=== PATIENT | female | born 1945 | race Two or more races ===

== ENCOUNTER 2017-01-27 17:08 | Inpatient (IN) | payer MEDICARE, MEDICAID ==
[~2017-01-27] VITALS: Ht 165.1 cm; Wt 73.9 kg
[~2017-01-27 17:08] MED LIST: ASPI81TA31 PO; CARB1TAB21 PO; CARV12.52 PO; CLON0.5T4 PO; Docusate Sodium PO; MAGN400O6 PO; METH10TA7 PO; OXCA150T5 PO; QUET25TA PO; SIMV40TA5 PO; TRAZ-144 PO
[2017-01-27] MEDS ORDERED: QUET25TA PO ×2 (18:00)
[2017-01-27] MEDS ORDERED: HALOPERIDOL LACTATE 5 MG/1 ML VIAL IM ONE (19:30)
[2017-01-27] MEDS ORDERED: LORAZEPAM 2 MG/1 ML VIAL IM ONE (19:30)
[2017-01-27] MEDS ORDERED: diphenhydrAMINE 50 MG/1 ML VIAL IM ONE (19:30)
--- NOTE | 2017-01-27 19:44 | NUR ---
Patient is yelling and screaming, attempting to climb out of bed. Not making any sense at this time. Family at bedside. IM ordered by MARQUIS, orders carried out.
[2017-01-27] MEDS ORDERED: diphenhydrAMINE 50 MG/1 ML VIAL ONE (19:50)
[2017-01-27] MEDS ORDERED: HALOPERIDOL LACTATE 5 MG/1 ML VIAL ONE (19:50)
[2017-01-27] MEDS ORDERED: LORAZEPAM 2 MG/1 ML VIAL ONE (19:51)
[2017-01-27 20:10] LABS: *BILIRUBIN,URIN NEGATIVE (NEGATIVE); *BLOOD, URINE NEGATIVE (NEGATIVE); *CLARITY,URINE CLEAR (CLEAR); *COLOR,URINE YELLOW (YELLOW); *KETONES,URINE NEGATIVE (NEGATIVE); *PROTEIN,URINE NEGATIVE (NEGATIVE); *UROBILINOGEN,URINE 0.2 E.U./dl (NORMAL); LEUKOCYTE ESTERASE ,URINE TRACE (NEGATIVE); NITRITE, URINE NEGATIVE (NEGATIVE); UGLUCOSE NEGATIVE (NEGATIVE)
[2017-01-27 20:16] LABS: RBC,URINE 0-3 /HPF (0-3); SQUAMOUS EPITHELIAL CELL,UR FEW /HPF (NONE SEEN)
[2017-01-27 20:17] LABS: *AMPHETAMINE, URINE NEGATIVE (NEGATIVE); *BARBITURATE, URINE NEGATIVE (NEGATIVE); *CANNABINOID, URINE NEGATIVE (NEGATIVE); *COCCAINE, URINE NEGATIVE (NEGATIVE); *OPIATE, URINE NEGATIVE (NEGATIVE); *PHENCYCLIDINE SCREEN,URINE NEGATIVE (NEGATIVE)
[2017-01-27 20:49] LABS: BASOPHILS % (AUTO) 0.8 % (0.0-2.0); EOSINOPHILS % (AUTO) 0.8 % (0.0-7.0); HEMATOCRIT 34.9 % (37-47); HEMOGLOBIN 11.4 G/DL (12.0-16.0); LYMPHOCYTES # (AUTO) 1.8 K/UL (0.8-4.8); LYMPHOCYTES % (AUTO) 30.7 % (20.5-51.5); MEAN CORPUSCULAR HEMOGLOBIN 28.7 UUG (27.0-31.0); MEAN CORPUSCULAR HGB CONC 33 g/dL (32.0-37.0); MEAN CORPUSCULAR VOLUME 87.5 FL (81.0-99.0); MONOCYTES # (AUTO) 0.5 K/UL (0.1-1.30); MONOCYTES % (AUTO) 9.2 % (0.0-11.0); NEUTROPHILS # (AUTO) 3.6 K/UL (1.8-8.9); NEUTROPHILS % (AUTO) 58.5 % (38.5-71.5); PLATELET COUNT (AUTO) 190 K/UL (150-450); RED BLOOD CELL COUNT(AUTO) 3.99 MIL/UL (4.2-5.4); WHITE BLOOD COUNT (AUTO) 5.9 K/UL (4.0-11.2)
[2017-01-27 20:55] LABS: CARBON DIOXIDE 27 mmol/L (21-32); CHLORIDE 105 mmol/L (98-107); CREATININE 0.7 mg/dL (0.6-1.3); GLUCOSE 108 mg/dL (74-106); POTASSIUM 3.8 mmol/L (3.5-5.1); UREA NITROGEN, BLOOD 18 mg/dL (7-18)
[2017-01-27 20:59] LABS: ETHANOL < 3 MG/DL (0-0)
[2017-01-27 21:00] LABS: ALANINE AMINOTRANSFERASE 122 U/L (14-59); ALKALINE PHOSPHATASE 59 U/L (50-136); ASPARTATE AMINOTRANSFERASE 44 U/L (15-37); BILIRUBIN,DIRECT 0.1 mg/dL (0.0-0.2); BILIRUBIN,TOTAL 0.2 mg/dL (0.2-1.0)
[2017-01-27 21:01] LABS: ACETAMINOPHEN < 2.0 ug/mL (10-30)
[2017-01-27 21:33] LABS: THYROID STIMULATING HORMONE 1.148 mIU/mL (0.358-3.740)
--- NOTE | 2017-01-28 | NUR ---
REPORT CALLED TO CORTNEY MCDONALD
--- NOTE | 2017-01-28 01:01 | NUR ---
Pt. admitted to [facility]HU , under care of Dr. CORREA Belongs List completed
--- NOTE | 2017-01-28 01:02 | NUR ---
TRASNPORTED PATIENT VIA STRETCHER.
[2017-01-28] MEDS ORDERED: MAG HYDROX/AL HYDROX/SIMETH 30 ML LIQUID UDC PO PRN (01:15)
[2017-01-28] MEDS ORDERED: MAGNESIUM HYDROXIDE 30 ML LIQUID UDC PO PRN (01:15)
[2017-01-28 04:09] LABS: *BILIRUBIN,URIN NEGATIVE (NEGATIVE); *BLOOD, URINE Trace-intact (NEGATIVE); *CLARITY,URINE CLEAR (CLEAR); *COLOR,URINE YELLOW (YELLOW); *KETONES,URINE NEGATIVE (NEGATIVE); *PROTEIN,URINE NEGATIVE (NEGATIVE); *UROBILINOGEN,URINE 0.2 E.U./dl (NORMAL); LEUKOCYTE ESTERASE ,URINE TRACE (NEGATIVE); NITRITE, URINE NEGATIVE (NEGATIVE); PH,URINE 6.5 (5.0-8.0); UGLUCOSE NEGATIVE (NEGATIVE)
[2017-01-28 04:18] LABS: BACTERIA,URINE NONE SEEN /HPF (NONE SEEN); MUCUS,URINE FEW /LPF (0-FEW); SQUAMOUS EPITHELIAL CELL,UR FEW /HPF (NONE SEEN)
[2017-01-28] MEDS: QUETIAPINE FUMARATE 25 MG TABLET PO PRN ×4 (04:42→18:48)
[2017-01-28] MEDS ORDERED: QUETIAPINE FUMARATE 25 MG TABLET ONE (04:45)
--- NOTE | 2017-01-28 05:58 | NUR ---
GPS/NSG Patient is a 71 yr old greenlandic speaking female admitted on a 5150 for Grave Disability according to the hold she became unmanageable at home combative towards caregivers, making attempts to elope and patient is unable to ambulate brought in by son. Patient has a history of Bipolar, Depression, Hypertension, hyperlipidemia, Parkinson's, TIA, metabolic encephalopathy, Seizure Disorder under the care of Dr. Rasmussen and Dr. Weems. Patient has an unsteady gait due to Parkinson's and is at high risks for falls, patient requires a 1:1 sitter for safety. Patient presented with multiple bruises located on the lower back, otherwise skin intact. Belongings sent home with son, patient unable to answer admitting interview questions due to altered mental status, patient received a one time IM administered as ordered in ER for increased agitation. Follow up with medication reconciliation endorsed to a.m. shift. Last observed lying in bed asleep.
[2017-01-28 07:30] VITALS: BP 97/70
[2017-01-28] MEDS: OMEGA-3 FATTY ACIDS/FISH OIL CAPSULE PO SCH ×2 (10:31→20:00)
[2017-01-28] MEDS: MULTIVITAMINS,THERAPEUTIC TABLET PO SCH (10:31)
[2017-01-28] MEDS: CARBIDOPA/LEVODOPA 25-100MG TABLET PO SCH ×3 (10:31→17:33)
--- NOTE | 2017-01-28 12:33 | NUR ---
Initial discharge instructions: Pt continues to reside at home [[address] [place] [address]; ] with her son.SW called pt's son, Duy [phone] but no answer at this time.ROXANA will speak with pt,son,and MD regarding appropriate discharge plans.SS will form a safe and proper discharge.
[2017-01-28 15:00] VITALS: BP 104/55
[2017-01-28] MEDS ORDERED: Medication Not On Formulary EA ([Docusate Sodium] (Colace) 200 MG) PO SCH (17:00)
[2017-01-28] MEDS: DOCUSATE SODIUM 100 MG CAPSULE PO SCH (20:01)
[2017-01-28 20:47] VITALS: BP 103/59
[2017-01-28] MEDS ORDERED: QUETIAPINE FUMARATE 25 MG TABLET PO SCH (21:00)
[2017-01-29] MEDS: ACETAMINOPHEN 325 MG TABLET PO PRN ×2 (05:59→20:49)
--- NOTE | 2017-01-29 06:00 | NUR ---
GPS: PATIENT C/O BACK PAIN. TYLENOL 650 MG PO GIVEN FOR PAIN.
--- NOTE | 2017-01-29 06:36 | NUR ---
GPS: REMAIN CALM AND COOPERATIVE,CONTINUE ON 1:1 SITTER @ BEDS SIDE FOR SAFETY. SLEPT 6 HRS THROUGH THE NIGHT.
[2017-01-29 07:30] VITALS: BP 108/57
[2017-01-29] MEDS: CARBIDOPA/LEVODOPA 25-100MG TABLET PO SCH ×3 (08:52→16:10)
[2017-01-29] MEDS: OMEGA-3 FATTY ACIDS/FISH OIL CAPSULE PO SCH ×2 (08:52→20:01)
[2017-01-29] MEDS: DOCUSATE SODIUM 100 MG CAPSULE PO SCH ×2 (08:52→20:02)
[2017-01-29] MEDS: MULTIVITAMINS,THERAPEUTIC TABLET PO SCH (08:52)
[2017-01-29] MEDS ORDERED: QUETIAPINE FUMARATE 25 MG TABLET PO SCH (09:00)
[2017-01-29] MEDS: QUETIAPINE FUMARATE 25 MG TABLET PO PRN ×2 (10:56→14:51)
[2017-01-29] MEDS: QUETIAPINE FUMARATE 25 MG TABLET PO SCH ×2 (13:36→20:03)
[2017-01-29] MEDS: CLONAZEPAM 0.5 MG TABLET PO SCH (15:11)
[2017-01-29 15:50] VITALS: BP 126/71
[2017-01-29] MEDS: ATORVASTATIN 10 MG TABLET PO SCH (20:02)
[2017-01-29 20:43] VITALS: BP 124/62
--- NOTE | 2017-01-29 21:32 | NUR ---
Patient complained of mild headaches. Tylenol 650mg PO PRN was given (see MAR). we will monitor for effectiveness.
--- NOTE | 2017-01-30 06:43 | NUR ---
Patient slept for approx. 6.45 hrs through the night. medication compliant at this time. Continue on 1:1 supervision for fall precaution.
[2017-01-30] MEDS: ACETAMINOPHEN 325 MG TABLET PO PRN ×2 (07:19→12:44)
[2017-01-30] MEDS: QUETIAPINE FUMARATE 25 MG TABLET PO PRN ×2 (07:19→11:50)
[2017-01-30 07:30] VITALS: BP 112/52
[2017-01-30] MEDS: OMEGA-3 FATTY ACIDS/FISH OIL CAPSULE PO SCH ×2 (08:58→20:32)
[2017-01-30] MEDS: CARBIDOPA/LEVODOPA 25-100MG TABLET PO SCH ×3 (08:59→16:42)
[2017-01-30] MEDS: DOCUSATE SODIUM 100 MG CAPSULE PO SCH ×2 (08:59→20:32)
[2017-01-30] MEDS: QUETIAPINE FUMARATE 25 MG TABLET PO SCH ×3 (08:59→20:33)
[2017-01-30] MEDS: MULTIVITAMINS,THERAPEUTIC TABLET PO SCH (08:59)
[2017-01-30] MEDS: CLONAZEPAM 0.5 MG TABLET PO SCH ×2 (08:59→14:24)
--- NOTE | 2017-01-30 15:38 | NUR ---
GPS: Nursing Notes: Patient's Son: Dyu: Patient's son Duy calling nursing station shouting on the phone stating that the PLANT BREEDER is throwing the phone at her, shouting at staff that "I believes my mom..", reassured him that her mom is save and nobody is throwing the phone at her, but continue to insist that the sitter is hurting her mom, getting louder every time staff tried to explain to him that her mother is safe here, but won't listen, stating threats against the sitter, stating that he is coming.. staff said.."Good.. we can talk face to face...". See you later.
[2017-01-30 16:00] VITALS: BP 110/58
[2017-01-30 20:00] VITALS: BP 84/50
--- NOTE | 2017-01-30 20:00 | NUR ---
GPS/GOODWILL REPRESENTATIVE: RECEIVED PATIENT LAYING IN BED IN HER ROOM. PLESANT UPON APPROACH.NO AGITATION NOTED.ON 1:1 SITTER @ BEDSIDE FOR SAFETY ALL THE TIME.
[2017-01-30 20:30] VITALS: BP 105/50
[2017-01-30] MEDS: ATORVASTATIN 10 MG TABLET PO SCH (20:32)
--- NOTE | 2017-01-31 06:06 | NUR ---
GPS/FURNACE UNLOADER: REMAIN CALM AND COOPERATIVE WITH MEDS AND CARE. SHOWERED THIS MORNING. KEPT CLEAN AND DRY. SLEPT 6:15 HRS THROUGH THE NIGHT.CONTINUE ON 1:1 SITTER @ BED SIDE FOR SAFETY.
[2017-01-31 07:42] VITALS: BP 111/58
[2017-01-31 08:05] LABS: ALANINE AMINOTRANSFERASE 85 U/L (14-59); ALKALINE PHOSPHATASE 52 U/L (50-136); ASPARTATE AMINOTRANSFERASE 32 U/L (15-37); BASOPHILS % (AUTO) 0.9 % (0.0-2.0); BILIRUBIN,TOTAL 0.3 mg/dL (0.2-1.0); CARBON DIOXIDE 27 mmol/L (21-32); CHLORIDE 106 mmol/L (98-107); CREATININE 0.8 mg/dL (0.6-1.3); EOSINOPHILS # (AUTO) 0.1 K/uL (0.0-0.7); EOSINOPHILS % (AUTO) 1.7 % (0.0-7.0); GLUCOSE 102 mg/dL (74-106); HEMATOCRIT 35.3 % (37-47); HEMOGLOBIN 11.7 G/DL (12.0-16.0); LYMPHOCYTES # (AUTO) 1.9 K/UL (0.8-4.8); LYMPHOCYTES % (AUTO) 34.8 % (20.5-51.5); MEAN CORPUSCULAR HGB CONC 33 g/dL (32.0-37.0); MEAN CORPUSCULAR VOLUME 87.5 FL (81.0-99.0); MONOCYTES # (AUTO) 0.5 K/UL (0.1-1.30); NEUTROPHILS % (AUTO) 53.6 % (38.5-71.5); PHOSPHOROUS 3.8 mg/dL (2.5-4.9); PLATELET COUNT (AUTO) 185 K/UL (150-450); POTASSIUM 4.2 mmol/L (3.5-5.1); RED BLOOD CELL COUNT(AUTO) 4.03 MIL/UL (4.2-5.4); TOTAL PROTEIN, SERUM 7.2 g/dL (6.4-8.2); UREA NITROGEN, BLOOD 29 mg/dL (7-18); WHITE BLOOD COUNT (AUTO) 5.5 K/UL (4.0-11.2)
[2017-01-31] MEDS: CLONAZEPAM 0.5 MG TABLET PO SCH ×4 (09:09→18:57)
[2017-01-31] MEDS: OMEGA-3 FATTY ACIDS/FISH OIL CAPSULE PO SCH ×2 (09:10→21:22)
[2017-01-31] MEDS: CARBIDOPA/LEVODOPA 25-100MG TABLET PO SCH ×4 (09:10→18:57)
[2017-01-31] MEDS: DOCUSATE SODIUM 100 MG CAPSULE PO SCH ×2 (09:10→21:23)
[2017-01-31] MEDS: MULTIVITAMINS,THERAPEUTIC TABLET PO SCH (09:10)
[2017-01-31] MEDS: QUETIAPINE FUMARATE 25 MG TABLET PO SCH ×3 (09:10→21:23)
[2017-01-31] MEDS: QUETIAPINE FUMARATE 25 MG TABLET PO PRN (10:14)
[2017-01-31 16:26] VITALS: BP 111/53
[2017-01-31 21:22] VITALS: BP 101/58
[2017-01-31] MEDS: ATORVASTATIN 10 MG TABLET PO SCH (21:22)
--- NOTE | 2017-01-31 22:00 | NUR ---
received to care, lying in bed, appearing restless at times, 1;1 sitter at side,at all times, for safety. compliant with medications and staff direction. her son came at around 2100, with permission of the nursing leather products supervisor, to visit, supervised by hospital security, for 15 minutes. he left with out any problems. as of 2200, she appears to be intermittently awake. bedtime snack and fluids given. assisted with toileting. will continue to monitor closely.
[2017-01-31] MEDS: ZOLPIDEM 5 MG TABLET PO PRN (23:12)
--- NOTE | 2017-01-31 23:12 | NUR ---
remains restless. PRN bari was given, at this time. will continue to monitor closely.
--- NOTE | 2017-02-01 06:32 | NUR ---
slept well last night, 8 hours, total. is now awake, lying in bed. sitter remains at bedside. no distress noted. will continue to monitor closely.
[2017-02-01 07:30] VITALS: BP 123/59
[2017-02-01] MEDS: CARBIDOPA/LEVODOPA 25-100MG TABLET PO SCH ×3 (08:03→16:50)
[2017-02-01] MEDS: OXCARBAZEPINE 150 MG TABLET PO SCH ×3 (08:03→16:50)
[2017-02-01] MEDS: QUETIAPINE FUMARATE 25 MG TABLET PO SCH ×3 (08:03→20:09)
[2017-02-01] MEDS: OMEGA-3 FATTY ACIDS/FISH OIL CAPSULE PO SCH ×2 (08:03→20:10)
[2017-02-01] MEDS: DOCUSATE SODIUM 100 MG CAPSULE PO SCH ×2 (08:04→20:10)
[2017-02-01] MEDS: CLONAZEPAM 0.5 MG TABLET PO SCH ×2 (08:04→15:07)
[2017-02-01] MEDS: MULTIVITAMINS,THERAPEUTIC TABLET PO SCH (08:04)
[2017-02-01] MEDS: QUETIAPINE FUMARATE 25 MG TABLET PO PRN (11:24)
[2017-02-01 15:20] VITALS: BP 92/50
[2017-02-01 19:55] VITALS: BP 119/55
[2017-02-01] MEDS: ATORVASTATIN 10 MG TABLET PO SCH (20:11)
--- NOTE | 2017-02-01 20:57 | NUR ---
anxious, restless, disruptive, requires frequent redirection, agitated, screams and shouts, medicated as ordered, will continue to monitor.
[2017-02-02] MEDS: QUETIAPINE FUMARATE 25 MG TABLET PO PRN ×2 (02:27→13:45)
[2017-02-02 07:30] VITALS: BP 133/58
[2017-02-02] MEDS: MULTIVITAMINS,THERAPEUTIC TABLET PO SCH (08:34)
[2017-02-02] MEDS: QUETIAPINE FUMARATE 25 MG TABLET PO SCH ×3 (08:35→20:08)
[2017-02-02] MEDS: OMEGA-3 FATTY ACIDS/FISH OIL CAPSULE PO SCH ×2 (08:35→20:37)
[2017-02-02] MEDS: DOCUSATE SODIUM 100 MG CAPSULE PO SCH ×2 (08:35→20:07)
[2017-02-02] MEDS: CARBIDOPA/LEVODOPA 25-100MG TABLET PO SCH ×3 (08:35→17:55)
[2017-02-02] MEDS: OXCARBAZEPINE 150 MG TABLET PO SCH ×3 (08:35→17:55)
[2017-02-02] MEDS: CLONAZEPAM 0.5 MG TABLET PO SCH ×2 (08:36→16:15)
[2017-02-02 16:00] VITALS: BP 112/95
--- NOTE | 2017-02-02 18:38 | NUR ---
patient less anxious today short periods of crying and agitation 1;1 at bedside for safety . continue to monitor for safety
[2017-02-02 19:56] VITALS: BP 118/63
[2017-02-02] MEDS: ATORVASTATIN 10 MG TABLET PO SCH (21:28)
[2017-02-02] MEDS: ACETAMINOPHEN 325 MG TABLET PO PRN (21:28)
[2017-02-02] MEDS: ZOLPIDEM 5 MG TABLET PO PRN (21:29)
[2017-02-02] MEDS: ENOXAPARIN SODIUM 40 MG/0.4 ML DISP.SYRIN SQ SCH (21:30)
--- NOTE | 2017-02-02 21:44 | NUR ---
PT IS VERY ANXIOUS AND RESTLESS, ATTEMPTING TO CLIMB OUT BED, MAKING WEIRD NOISE, SNACKS OFFERED, PAIN MED OFFERED, ATTEMPTED TO AMBULATE PT ON THE HALLWAY WITH STAFF FOLLOWING BEHIND WITH WC BEHIND,UNABLE TO MAKE HER NEED KNOWN,WILL CONTINUE TO MONITOR CLOSELY.
[2017-02-03] MEDS: QUETIAPINE FUMARATE 25 MG TABLET PO PRN ×3 (01:40→18:52)
--- NOTE | 2017-02-03 01:40 | NUR ---
PT STILL AWAKE AND RESTLESS, SCREAMING AND SHOUTING, MEDICATED ORDERED, WILL CONTINUE TO MONITOR.
--- NOTE | 2017-02-03 07:05 | NUR ---
pt slept zero sleep
[2017-02-03 07:30] VITALS: BP 115/60
[2017-02-03 08:00] LABS: BASOPHILS % (AUTO) 0.8 % (0.0-2.0); EOSINOPHILS # (AUTO) 0.1 K/uL (0.0-0.7); EOSINOPHILS % (AUTO) 1.1 % (0.0-7.0); HEMATOCRIT 35.9 % (37-47); HEMOGLOBIN 12.1 G/DL (12.0-16.0); LYMPHOCYTES # (AUTO) 1.9 K/UL (0.8-4.8); LYMPHOCYTES % (AUTO) 36.4 % (20.5-51.5); MEAN CORPUSCULAR HEMOGLOBIN 29.6 UUG (27.0-31.0); MEAN CORPUSCULAR HGB CONC 34 g/dL (32.0-37.0); MEAN CORPUSCULAR VOLUME 87.9 FL (81.0-99.0); MONOCYTES # (AUTO) 0.4 K/UL (0.1-1.30); MONOCYTES % (AUTO) 8.5 % (0.0-11.0); NEUTROPHILS # (AUTO) 2.7 K/UL (1.8-8.9); NEUTROPHILS % (AUTO) 53.2 % (38.5-71.5); PLATELET COUNT (AUTO) 182 K/UL (150-450); RED BLOOD CELL COUNT(AUTO) 4.08 MIL/UL (4.2-5.4); WHITE BLOOD COUNT (AUTO) 5.1 K/UL (4.0-11.2)
[2017-02-03] MEDS: MULTIVITAMINS,THERAPEUTIC TABLET PO SCH (08:25)
[2017-02-03] MEDS: OMEGA-3 FATTY ACIDS/FISH OIL CAPSULE PO SCH ×2 (08:25→20:00)
[2017-02-03] MEDS: CARBIDOPA/LEVODOPA 25-100MG TABLET PO SCH ×3 (08:25→17:17)
[2017-02-03] MEDS: CLONAZEPAM 0.5 MG TABLET PO SCH ×2 (08:25→15:56)
[2017-02-03] MEDS: QUETIAPINE FUMARATE 25 MG TABLET PO SCH ×3 (08:25→20:09)
[2017-02-03] MEDS: OXCARBAZEPINE 150 MG TABLET PO SCH ×3 (08:25→17:17)
[2017-02-03] MEDS: DOCUSATE SODIUM 100 MG CAPSULE PO SCH ×2 (08:26→20:00)
[2017-02-03 08:41] LABS: CREATININE 0.8 mg/dL (0.6-1.3); POTASSIUM 3.5 mmol/L (3.5-5.1)
[2017-02-03 16:00] VITALS: BP 102/63
--- NOTE | 2017-02-03 18:56 | NUR ---
PT IS NOTED TO BE RESTLESS, BANGING ON THE TABLE. PRN SEROQUEL 12.5MG WAS ATTEMPTED TO BE GIVEN. PT REFUSES, SQUEZED HER LIPS. WILL CONTINUE TO MONITOR.
[2017-02-03] MEDS: ENOXAPARIN SODIUM 40 MG/0.4 ML DISP.SYRIN SQ SCH (19:56)
[2017-02-03 20:00] VITALS: BP 102/56
[2017-02-03] MEDS: ATORVASTATIN 10 MG TABLET PO SCH (20:00)
[2017-02-03] MEDS: OXCARBAZEPINE 300 MG TABLET PO SCH (20:06)
[2017-02-03 23:00] VITALS: BP 102/56
--- NOTE | 2017-02-04 06:50 | NUR ---
GPS: REMAIN CALM AND COOPERATIVE WITH MEDS AND CARE. CONTINUE ON 1:1 SITTER @ BEDSIDE FOR SAFETY.SLEPT 8:15 HRS THROUGH THE NIGHT. CONTINUE PLAN OF CARE.
[2017-02-04 07:30] VITALS: BP 112/58
[2017-02-04] MEDS ORDERED: OXCARBAZEPINE 150 MG TABLET PO SCH (09:00)
[2017-02-04] MEDS: MULTIVITAMINS,THERAPEUTIC TABLET PO SCH (09:02)
[2017-02-04] MEDS: OMEGA-3 FATTY ACIDS/FISH OIL CAPSULE PO SCH ×2 (09:02→20:15)
[2017-02-04] MEDS: DOCUSATE SODIUM 100 MG CAPSULE PO SCH ×2 (09:02→20:15)
[2017-02-04] MEDS: CARBIDOPA/LEVODOPA 25-100MG TABLET PO SCH ×3 (09:02→17:29)
[2017-02-04] MEDS: QUETIAPINE FUMARATE 25 MG TABLET PO SCH ×3 (09:03→20:31)
[2017-02-04] MEDS: CLONAZEPAM 0.5 MG TABLET PO SCH ×2 (09:03→16:02)
[2017-02-04] MEDS: QUETIAPINE FUMARATE 25 MG TABLET PO PRN (11:29)
[2017-02-04] MEDS: OXCARBAZEPINE 300 MG TABLET PO SCH ×2 (13:11→20:15)
[2017-02-04 16:53] VITALS: BP 107/54
[2017-02-04 20:00] VITALS: BP 101/45
[2017-02-04] MEDS: ATORVASTATIN 10 MG TABLET PO SCH (20:15)
[2017-02-04] MEDS: ACETAMINOPHEN 325 MG TABLET PO PRN (20:15)
[2017-02-04 20:18] VITALS: BP 110/54
[2017-02-04] MEDS: ENOXAPARIN SODIUM 40 MG/0.4 ML DISP.SYRIN SQ SCH (20:18)
[2017-02-05] MEDS: QUETIAPINE FUMARATE 25 MG TABLET PO SCH ×3 (06:20→20:06)
[2017-02-05 07:14] LABS: BILIRUBIN,TOTAL 0.3 mg/dL (0.2-1.0); CREATININE 0.9 mg/dL (0.6-1.3); POTASSIUM 4.8 mmol/L (3.5-5.1); TOTAL PROTEIN, SERUM 7.2 g/dL (6.4-8.2)
[2017-02-05 07:30] VITALS: BP 105/54
[2017-02-05] MEDS ORDERED: OXCARBAZEPINE 150 MG TABLET PO SCH (09:00)
[2017-02-05] MEDS: OMEGA-3 FATTY ACIDS/FISH OIL CAPSULE PO SCH ×2 (09:03→20:07)
[2017-02-05] MEDS: CLONAZEPAM 0.5 MG TABLET PO SCH ×2 (09:05→15:34)
[2017-02-05] MEDS: CARBIDOPA/LEVODOPA 25-100MG TABLET PO SCH ×3 (09:05→17:04)
[2017-02-05] MEDS: OXCARBAZEPINE 300 MG TABLET PO SCH ×3 (09:06→20:06)
[2017-02-05] MEDS: DOCUSATE SODIUM 100 MG CAPSULE PO SCH ×2 (09:06→20:07)
[2017-02-05] MEDS: MULTIVITAMINS,THERAPEUTIC TABLET PO SCH (09:06)
[2017-02-05] MEDS: ACETAMINOPHEN 325 MG TABLET PO PRN (13:07)
[2017-02-05 15:01] VITALS: BP 124/61
[2017-02-05] MEDS: QUETIAPINE FUMARATE 25 MG TABLET PO PRN (17:09)
[2017-02-05 19:59] VITALS: BP 107/61
[2017-02-05] MEDS: ATORVASTATIN 10 MG TABLET PO SCH (20:06)
[2017-02-05] MEDS: ENOXAPARIN SODIUM 40 MG/0.4 ML DISP.SYRIN SQ SCH (20:07)
[2017-02-06] MEDS: ZOLPIDEM 5 MG TABLET PO PRN ×2 (00:29→22:20)
--- NOTE | 2017-02-06 00:30 | NUR ---
GPS: Pt.is awake,agitated,screaming and attempting to strike out at staff when approached. Denies pain at this time. Denies the need to go to the bathroom. Pt.is anxious,restless and attempting to climb out of bed for no reason. Confused,disoriented. Poor insight to present situation. Ambien 5mg given at this time and taken after a lot of persuasion from staff. Sitter remains at bedside for safety.
[2017-02-06] MEDS: QUETIAPINE FUMARATE 25 MG TABLET PO SCH ×3 (06:18→20:08)
[2017-02-06 07:30] VITALS: BP 123/44
[2017-02-06] MEDS: CARBIDOPA/LEVODOPA 25-100MG TABLET PO SCH ×3 (08:25→16:41)
[2017-02-06] MEDS: CLONAZEPAM 0.5 MG TABLET PO SCH ×2 (08:25→15:05)
[2017-02-06] MEDS: DOCUSATE SODIUM 100 MG CAPSULE PO SCH ×2 (08:25→20:07)
[2017-02-06] MEDS: OXCARBAZEPINE 300 MG TABLET PO SCH ×3 (08:25→20:07)
[2017-02-06] MEDS: MULTIVITAMINS,THERAPEUTIC TABLET PO SCH (08:26)
[2017-02-06] MEDS: OMEGA-3 FATTY ACIDS/FISH OIL CAPSULE PO SCH ×2 (08:26→20:07)
[2017-02-06] MEDS: ACETAMINOPHEN 325 MG TABLET PO PRN (12:54)
[2017-02-06] MEDS: QUETIAPINE FUMARATE 25 MG TABLET PO PRN (15:05)
[2017-02-06 15:10] VITALS: BP 110/50
[2017-02-06 20:00] VITALS: BP 128/61
[2017-02-06] MEDS: ATORVASTATIN 10 MG TABLET PO SCH (20:07)
[2017-02-06] MEDS: ENOXAPARIN SODIUM 40 MG/0.4 ML DISP.SYRIN SQ SCH (20:13)
[2017-02-07] MEDS: QUETIAPINE FUMARATE 25 MG TABLET PO PRN ×2 (02:54→14:50)
[2017-02-07] MEDS: ACETAMINOPHEN 325 MG TABLET PO PRN ×2 (05:42→20:32)
[2017-02-07] MEDS: QUETIAPINE FUMARATE 25 MG TABLET PO SCH ×3 (06:26→20:30)
[2017-02-07 07:25] LABS: CREATININE 0.7 mg/dL (0.6-1.3); POTASSIUM 3.7 mmol/L (3.5-5.1)
[2017-02-07 07:30] VITALS: BP 94/58
[2017-02-07] MEDS: CARBIDOPA/LEVODOPA 25-100MG TABLET PO SCH ×3 (08:18→16:36)
[2017-02-07] MEDS: OMEGA-3 FATTY ACIDS/FISH OIL CAPSULE PO SCH ×2 (08:18→20:29)
[2017-02-07] MEDS: CLONAZEPAM 0.5 MG TABLET PO SCH ×2 (08:18→14:50)
[2017-02-07] MEDS: MULTIVITAMINS,THERAPEUTIC TABLET PO SCH (08:18)
[2017-02-07] MEDS: OXCARBAZEPINE 300 MG TABLET PO SCH ×3 (08:18→20:39)
[2017-02-07] MEDS: DOCUSATE SODIUM 100 MG CAPSULE PO SCH ×2 (08:18→20:29)
[2017-02-07 16:44] VITALS: BP 135/75
[2017-02-07] MEDS: ATORVASTATIN 10 MG TABLET PO SCH (20:30)
[2017-02-07] MEDS: ENOXAPARIN SODIUM 40 MG/0.4 ML DISP.SYRIN SQ SCH (20:35)
[2017-02-07 20:36] VITALS: BP 104/56
[2017-02-08] MEDS: ZOLPIDEM 5 MG TABLET PO PRN (01:11)
[2017-02-08] MEDS: QUETIAPINE FUMARATE 25 MG TABLET PO SCH ×3 (06:16→20:17)
[2017-02-08 07:30] VITALS: BP 107/60
[2017-02-08] MEDS: CLONAZEPAM 0.5 MG TABLET PO SCH ×2 (08:33→15:04)
[2017-02-08] MEDS: OXCARBAZEPINE 300 MG TABLET PO SCH ×3 (08:33→20:17)
[2017-02-08] MEDS: OMEGA-3 FATTY ACIDS/FISH OIL CAPSULE PO SCH ×2 (08:33→20:17)
[2017-02-08] MEDS: DOCUSATE SODIUM 100 MG CAPSULE PO SCH ×2 (08:33→20:18)
[2017-02-08] MEDS: CARBIDOPA/LEVODOPA 25-100MG TABLET PO SCH ×3 (08:34→17:05)
[2017-02-08] MEDS: MULTIVITAMINS,THERAPEUTIC TABLET PO SCH (08:34)
[2017-02-08 15:47] VITALS: BP 92/53
[2017-02-08 20:00] VITALS: BP 101/55
[2017-02-08] MEDS: ATORVASTATIN 10 MG TABLET PO SCH (20:17)
[2017-02-08] MEDS: ENOXAPARIN SODIUM 40 MG/0.4 ML DISP.SYRIN SQ SCH (20:45)
[2017-02-09] MEDS: QUETIAPINE FUMARATE 25 MG TABLET PO SCH ×3 (06:27→21:18)
[2017-02-09 07:28] LABS: BASOPHILS # (AUTO) 0.1 K/uL (0.0-8.0); BASOPHILS % (AUTO) 1.2 % (0.0-2.0); EOSINOPHILS # (AUTO) 0.1 K/uL (0.0-0.7); EOSINOPHILS % (AUTO) 1.6 % (0.0-7.0); HEMATOCRIT 35.5 % (37-47); HEMOGLOBIN 11.9 G/DL (12.0-16.0); LYMPHOCYTES # (AUTO) 1.9 K/UL (0.8-4.8); LYMPHOCYTES % (AUTO) 39.5 % (20.5-51.5); MEAN CORPUSCULAR HEMOGLOBIN 29.1 UUG (27.0-31.0); MEAN CORPUSCULAR HGB CONC 34 g/dL (32.0-37.0); MEAN CORPUSCULAR VOLUME 86.5 FL (81.0-99.0); MONOCYTES # (AUTO) 0.5 K/UL (0.1-1.30); MONOCYTES % (AUTO) 9.6 % (0.0-11.0); NEUTROPHILS # (AUTO) 2.2 K/UL (1.8-8.9); NEUTROPHILS % (AUTO) 48.1 % (38.5-71.5); PLATELET COUNT (AUTO) 203 K/UL (150-450); WHITE BLOOD COUNT (AUTO) 4.8 K/UL (4.0-11.2)
[2017-02-09 07:42] LABS: BILIRUBIN,TOTAL 0.3 mg/dL (0.2-1.0); CREATININE 0.7 mg/dL (0.6-1.3); MAGNESIUM 1.9 mg/dL (1.8-2.4); PHOSPHOROUS 3.6 mg/dL (2.5-4.9); TOTAL PROTEIN, SERUM 7.8 g/dL (6.4-8.2)
[2017-02-09 08:00] VITALS: BP 124/58
[2017-02-09] MEDS: OMEGA-3 FATTY ACIDS/FISH OIL CAPSULE PO SCH ×2 (09:13→21:17)
[2017-02-09] MEDS: MULTIVITAMINS,THERAPEUTIC TABLET PO SCH (09:14)
[2017-02-09] MEDS: CARBIDOPA/LEVODOPA 25-100MG TABLET PO SCH ×3 (09:14→17:35)
[2017-02-09] MEDS: OXCARBAZEPINE 300 MG TABLET PO SCH ×3 (09:14→21:18)
[2017-02-09] MEDS: CLONAZEPAM 0.5 MG TABLET PO SCH ×3 (09:14→16:10)
[2017-02-09] MEDS: DOCUSATE SODIUM 100 MG CAPSULE PO SCH ×2 (09:14→21:19)
[2017-02-09] MEDS: ACETAMINOPHEN 325 MG TABLET PO PRN (14:07)
[2017-02-09 15:00] VITALS: BP 108/51
[2017-02-09 21:14] VITALS: BP 134/66
[2017-02-09] MEDS: ATORVASTATIN 10 MG TABLET PO SCH (21:19)
[2017-02-10] MEDS: QUETIAPINE FUMARATE 25 MG TABLET PO SCH ×5 (06:13→20:46)
[2017-02-10 07:30] VITALS: BP 102/56
[2017-02-10] MEDS: MULTIVITAMINS,THERAPEUTIC TABLET PO SCH (09:09)
[2017-02-10] MEDS: DOCUSATE SODIUM 100 MG CAPSULE PO SCH ×3 (09:09→20:46)
[2017-02-10] MEDS: OXCARBAZEPINE 300 MG TABLET PO SCH ×5 (09:09→20:46)
[2017-02-10] MEDS: OMEGA-3 FATTY ACIDS/FISH OIL CAPSULE PO SCH ×3 (09:09→20:46)
[2017-02-10] MEDS: CARBIDOPA/LEVODOPA 25-100MG TABLET PO SCH ×4 (09:09→17:49)
[2017-02-10] MEDS: ACETAMINOPHEN 325 MG TABLET PO PRN (12:09)
--- NOTE | 2017-02-10 12:53 | NUR ---
patient is refusing to eat breakfast or lunch won t open mouth for any thing in formed charge nurse, medicated with mylanta 30cc for compliants of abdominal pain then after that she stopped taking meds and eating ,oob on patio with 1;1 staffabdomen soft she s rubbing it with no disclousre continue to monitor pt s compliants of pain
--- NOTE | 2017-02-10 13:34 | NUR ---
GPS;/RN-patient anxious and restless this afternoon, refusing to take meds regardless of frequent prompting and redirection. patient assisted to [facility] to take out for fresh air break to help with anxiety. Continues anxious and restless, verbalizing some pain with assistance of other nurse Alda Dinh, CORTNEY, translating some discomfort in legs, Offered Tylenol, refused. patient assisted back to [facility], continue to offer meds, was able to take meds at this time. Addendum: 02/10/17 at 1340 by GALEN DELONG RN patient with pain in bilateral lower extremities, unable to scale. compliant with meds and tylenol PRN continue to monitor
--- NOTE | 2017-02-10 13:45 | NUR ---
after coaxing over and over patient took 1300 medication in her room still a little anxious 1;1 at bedside
--- NOTE | 2017-02-10 14:00 | NUR ---
GPS./RN- Spoke with Dr Weems for medical clearance, patient stable for discharge, follow up with infant teacher on discharge within one to two weeks. Spoke with Dr Christianson, medically clear for discharge, can follow up with Nephrology within one to two weeks. Spoke with Dr Rasmussen, patient psychiatrically stable for discharge, follow up upon discharge within one to two weeks.
--- NOTE | 2017-02-10 14:36 | NUR ---
DC Note: The patient will be discharged today back home [[address] [place] [address] ] via private transportation. Patient will be picked up by her son at 7:00 pm. Spoke with patients son, Duy who is aware and agreeable with discharge plans. Per son, patient has a 24 hour caregiver at home. Pt will follow up with (Sorting Supervisor) [[address] [place] [address]; ] and Dr. Rasmussen (Psychiatrist) [[address] [place] [address]; ].
[2017-02-10] MEDS: CLONAZEPAM 0.5 MG TABLET PO SCH (15:31)
[2017-02-10 16:00] VITALS: BP 123/66
--- NOTE | 2017-02-10 16:06 | NUR ---
GPS/RN- contacted [facility] provided by cipriano Gordillo, [address] [place] [address] . Faxed TMS for meds to be continued at home, verified NPI for ordering physician Dr Weems , spoke with Jazmin, Hide Buyer. Dr Rasmussen informed of Pharmacy, he will call in his prescriptions, verified and read back meds to be continued at home.
[2017-02-10] MEDS: ATORVASTATIN 10 MG TABLET PO SCH ×2 (20:07→20:46)
[2017-02-10 20:16] VITALS: BP 142/70
--- NOTE | 2017-02-10 21:23 | NUR ---
Discharge Note: HS medications held due to son's refusal to have them administered. Pt discharged home with her son Duy. Duy educated on diet and all medications, including risks, benefits, side effects, and purpose. Pt's son signed all discharge paperwork. Pt had no belongings in the MHU. Prescriptions given to Pt's son. Pt in no acute distress at time of d/c. Pt discharged from MHU via wheelchair accompanied by PICKLE SOLUTION MAKER and security. Home health will follow up.
== END 2017-02-10 21:34 | disposition home or self-care (01) | DRG 885 ==
LOC: ER 17:11 → GPS 22:13
PROVIDERS: ADMIT Psychiatry & Neurology Psychiatry; ATTEND Internal Medicine
DX: F31.64 Bipolar disorder, current episode mixed, severe, with psychotic features (principal); G93.40 Encephalopathy, unspecified; E87.1 Hypo-osmolality and hyponatremia; F29 Unspecified psychosis not due to a substance or known physiological condition; G31.84 Mild cognitive impairment of uncertain or unknown etiology; G20 Parkinson's disease; G25.0 Essential tremor; Z91.81 History of falling; I51.7 Cardiomegaly; I10 Essential (primary) hypertension; E78.5 Hyperlipidemia, unspecified; E05.90 Thyrotoxicosis, unspecified without thyrotoxic crisis or storm; E66.9 Obesity, unspecified; K59.00 Constipation, unspecified; D64.9 Anemia, unspecified; R74.0 Nonspecific elevation of levels of transaminase and lactic acid dehydrogenase [LDH]; Z68.27 Body mass index [BMI] 27.0-27.9, adult; E88.09 Other disorders of plasma-protein metabolism, not elsewhere classified; R79.89 Other specified abnormal findings of blood chemistry; R63.1 Polydipsia
CPT/HCPCS: 36415; 70030-TC; 70450; 71010; 80307; 83605; 83735; 84100; 84443; 85025; 85730; 87040; 87086; 93005; 97116; 97161; 97530; A4663; G0480; G0480-TC; J1200; J1630; J1650; J2060